=== PATIENT | male | born 1985 | race Caucasian/White ===

== ENCOUNTER 2018-03-07 16:54 | Emergency (ER) | payer MEDICAID ==
[~2018-03-07] VITALS: Ht 180.3 cm; Wt 70.5 kg
[2018-03-07 17:13] VITALS: BP 118/84
[2018-03-07] MEDS ORDERED: IBUPROFEN 200 MG TABLET ONE (18:21)
[2018-03-07] MEDS ORDERED: IBUPROFEN 200 MG TABLET PO ONE (18:30)
== END 2018-03-07 18:50 | disposition home or self-care (01) ==
LOC: ED 18:44
DX: M25.562 Pain in left knee (principal); G89.29 Other chronic pain
CPT/HCPCS: 99283

== ENCOUNTER 2018-03-29 18:44 | Emergency (ER) | payer MEDICAID ==
[~2018-03-29] VITALS: Ht 180.3 cm; Wt 71.0 kg
[2018-03-29 18:48] VITALS: BP 124/83
== END 2018-03-29 19:29 | disposition left against medical advice (07) ==
LOC: ED 19:01
DX: R05 Cough (principal); R50.9 Fever, unspecified; R09.81 Nasal congestion
CPT/HCPCS: 99281

== ENCOUNTER 2018-04-22 23:20 | Emergency (ER) | payer MEDICAID ==
[2018-04-22 23:21] VITALS: BP 125/67
--- NOTE | 2018-04-22 23:37 | NUR ---
PT STATES ABD PAINxMULTIPLE YEARS. PRESENTING TONIGHT W/ NO WORSENING OF S/S. DENIES ANY FEVERS N/V/D. DENIES ABD SURGERIES OR RECENT ABX. DENIES SYMPTOMS. DENIES CP/SOB. CALL LIGHT WITHIN REACH. AWAITING MD ASSESSMENT.
[2018-04-23] MEDS ORDERED: MAALOX/HYOSCYAMINE/LIDOCAINE 45 ML BTL PO ONE
[2018-04-23] MEDS ORDERED: MAALOX/HYOSCYAMINE/LIDOCAINE 45 ML BTL ONE (00:04)
--- NOTE | 2018-04-23 00:08 | NUR ---
MEDICATED FOR PAIN AT THIS TIME
[2018-04-23 00:15] LABS: BASOPHILS # (AUTO) 0.03 x10^3/uL (0-0.1); BASOPHILS % (AUTO) 0 % (0-1); EOSINOPHILS % (AUTO) 0 % (1-7); LYMPHOCYTES # (AUTO) 0.89 x10^3/uL (1-3.4); LYMPHOCYTES % (AUTO) 8 % (22-44); MD NO; MEAN CORPUSCULAR HEMOGLOBIN 31.9 pg (27.5-34.5); MEAN PLATELET VOLUME 8.1 fL (7.4-10.4); MONOCYTES # (AUTO) 0.21 x10^3/uL (0.2-0.8); MONOCYTES % (AUTO) 2 % (2-9); NEUTROPHILS % (AUTO) 90 % (42-75); PLATELET COUNT 474 x10^3/uL (130-400); RED BLOOD COUNT 4.75 x10^6/uL (4.38-5.82); RED CELL DISTRIBUTION WIDTH 13.5 % (9.4-14.8)
[2018-04-23 00:21] LABS: ALANINE AMINOTRANSFERASE 26 U/L (12-78); ALBUMIN 3.4 g/dL (3.4-5.0); ANION GAP 5 mmol/L (5-15); CALCIUM 8.4 mg/dL (8.5-10.1); CHLORIDE 106 mmol/L (98-107); CREATININE 0.84 mg/dL (0.7-1.3)
[2018-04-23 00:23] LABS: ALKALINE PHOSPHATASE 138 U/L (45-117); BILIRUBIN,TOTAL 0.2 mg/dL (0.2-1.0); TOTAL PROTEIN 7.6 g/dL (6.4-8.2)
--- NOTE | 2018-04-23 01:10 | NUR ---
PT DISGRUNTLED UPON D/C AND ASKING FOR MD TO SEE AGAIN. MD RECHECK AND PT STILL REFUSING TO D/C. PT REEDUCATED AND STILL UPSET. 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
== END 2018-04-23 01:19 | disposition home or self-care (01) ==
LOC: ED 23:40
DX: R10.13 Epigastric pain (principal); R10.12 Left upper quadrant pain; M79.89 Other specified soft tissue disorders
CPT/HCPCS: 36415; 80053; 83690; 84550; 85025; 99283